=== PATIENT | female | born 1960 | race Caucasian/White ===

== ENCOUNTER 2017-03-23 22:00 | Inpatient (IN) | payer OTHER ==
--- NOTE | ~2017-03-23 | PA ---
Unit #: [id number] #: [id number] Patient: VIJAYA RIOS [id number] [facility] [address] [place] [address] [id number] MR#: [id number] NAME: VIJAYA RIOS. ROOM: P211 Age: 57 Sex: F Admission Date: 03/24/2017 : 1960 Date of Assessment: 03/24/2017 Attending Physician: Keith Mckenzie M.D. Admitting Physician: Keith Mckenzie M.D. Primary Care Physician: Generic Doctor Not In System PSYCHIATRIC ASSESSMENT DATE OF SERVICE 03/24/2017. INFORMANTS The patient considered partially reliable; OLOP, reliable. The patient's family, reliable. CHIEF COMPLAINT Psychosis. HISTORY OF PRESENT ILLNESS The patient is a 57-year-old woman with a history of bipolar disorder, who was initially taken to [facility] on MIW. She become increasingly psychotic, decompensated, and paranoid since the of her and caregiver several months ago. Family reported she had been delusional seeing things and walking around the house with a large assistant professor of theater knife, threatening unseen people. After MIW was upheld at [facility], she was transferred to [facility]. PAST PSYCHIATRIC HISTORY The patient has been at [facility] in the past and currently has an outpatient provider. She has also been at [facility] in the past. She was mostly taking risperidone, gabapentin, and alprazolam. FAMILY PSYCHIATRIC HISTORY None reported. SOCIAL HISTORY The patient denied a history of childhood abuse or neglect. She is currently on long-term disability, having lost her recently and is unemployed. She is currently living alone with monitoring by her family. PAST MEDICAL HISTORY No chronic medical problems. MEDICATIONS Please see MAR. ALLERGIES No known medication allergies. SUBSTANCE USE HISTORY Unit #: [id number] #: [id number] Patient: VIJAYA RIOS None reported. MENTAL STATUS EXAMINATION The patient was admitted and placed on suicide precautions. Physical examination and baseline laboratory studies will be ordered and reviewed. Risperidone was restarted for psychosis with trazodone as needed for insomnia. She will enroll in psychotherapy groups and activities. TREATMENT GOALS Resolution of psychosis, improvement in insight, and improvement in coping skills. DISCHARGE PLANNING Follow up with [facility]. ESTIMATED LENGTH OF STAY 5 days. Dictated by... Keith Mckenzie M.D. MACIE/dian TD: 05/24/2017 07:25 JOB #: [id number] PSYCHIATRIC ASSESSMENT Page 1 of 1 X Keith Mckenzie MD X PSYCHIATRIC ASSESSMENT
--- NOTE | ~2017-03-23 | HP ---
Unit #: [id number] #: [id number] Patient: VIJAYA RIOS [id number] [place] [address] [id number] MR#: [id number] NAME: VIJAYA RIOS ROOM: P211 Age: 56 Sex: F Admission Date: 03/24/2017 : 1960 Attending Physician: Keith Mckenzie M.D. Admitting Physician: Keith Mckenzie M.D. Primary Care Physician: Generic Doctor Not In System HISTORY AND PHYSICAL HISTORY OF PRESENT ILLNESS The patient is a 56-year-old female, who states that she does not know why she is here, she doesn't know how she got here. She says she is clean and she doesn't know why she is here and she wants to go home. Per chart, the patient was brought here on a MIW taken out by her son because she is having visual hallucinations, and also some history of bipolar. PAST MEDICAL HISTORY The patient states none. PAST SURGICAL HISTORY None. ALLERGIES None. SOCIAL HISTORY Positive for smoking. The patient admits to take Soma and Xanax. FAMILY HISTORY Noncontributory. REVIEW OF SYSTEMS CONSTITUTIONAL: No fever or chills. HEENT: Denies any sore throat, ear pain or runny nose. CARDIOVASCULAR: Denies chest pain, irregular heart rhythm or palpitations. CHEST: Denies shortness of breath or cough. No hemoptysis. GASTROINTESTINAL: Denies nausea, vomiting, diarrhea or chronic constipation. ENDOCRINE: Denies history of increased thirst or urination. No recent significant weight loss or gain. GENITOURINARY: Denies dysuria, frequency, or hematuria. SKIN: Denies any rashes. HEMATOLOGIC: Denies history of increased bleeding or bruising. MUSCULOSKELETAL: Denies any hot, swollen joints. No generalized muscle pain. NEUROLOGIC: Denies problems with vision or speech. No frequent, severe headaches. No numbness, tingling or weakness in any extremities. Denies loss of bladder or bowel control. CURRENT MEDICATIONS 1. Motrin 800 mg p.o. three times daily 2. Neurontin 300 mg p.o. three times daily Unit #: [id number] #: [id number] Patient: VIJAYA RIOS 3. Risperdal 2 mg p.o. q.h.s. 4. Zyrtec 10 mg daily 5. Flonase two puffs each nostril daily 6. Trazodone 50 mg p.o. q.h.s. 7. Metoprolol 25 mg p.o. twice daily 8. Nitroglycerin 0.4 mg p.r.n. 9. Multivitamin p.o. daily 10. Vitamin B complex p.o. daily 11. Potassium 20 mEq p.o. daily PHYSICAL EXAMINATION GENERAL: Alert, oriented, and in no acute distress although the patient cannot state why she is here or how she arrived here. VITAL SIGNS: Blood pressure 136/100, heart rate 90, respirations 16. HEIGHT: 5 feet 4 inches. WEIGHT: 93.5 pounds. SKIN: Warm and dry without rash or lesion. Bruise to the right knee, tattoo to the right lower extremity. Scab to the right elbow. HEENT: Normocephalic. TMs not viewed. Oral and nasal passages clear. Conjunctivae clear. PERRLA. EOMs intact. NECK: Supple without lymphadenopathy or thyromegaly. HEART: Regular rate and rhythm without murmur. LUNGS: Clear. ABDOMEN: Soft, nontender. : Not done. EXTREMITIES: No evidence of cyanosis, clubbing or edema. Moves all without focal deficit. NEUROLOGICAL: Grossly within normal limits. Cranial Nerves: II: Visual willett are intact. III, IV AND : Extraocular movements are intact. Pupils are equal, round and reactive to light. V: Facial sensation is grossly normal. VII: Facial movements and expression are normal. VIII: Auditory acuity grossly intact. IX, X: Uvula is midline. Phonation is normal. XI: Patient shrugs shoulders and turns head normally. XII: Tongue protrudes in the midline. Sensory and Motor Function: Sensory and motor sensation is grossly normal. Motor: moves all extremities well. Coordination: Gait is normal. Deep Tendon Reflexes: Intact. IMPRESSION Psychiatric admission. RECOMMENDATIONS Psychiatric, per psychiatrist. MEDICAL I see no contraindications to participating in facility's activities. MEDICAL PROGNOSIS Good. Dictated by... Nader EarlPKamleshREmmett DA SILVA/benitez Unit #: [id number] #: [id number] Patient: VIJAYA RIOS TD: 03/25/2017 09:08 JOB #: [id number] HISTORY AND PHYSICAL Page 1 of 1 X Fabienne Cleary APR X HISTORY AND PHYSICAL
--- NOTE | ~2017-03-23 | DS ---
Unit #: [id number] #: [id number] Patient: VIJAYA RIOS [id number] [place] [address] [id number] MR#: [id number] NAME: VIJAYA RIOS. ROOM: P211 Age: 56 Sex: F Admission Date: 03/24/2017 : 1960 Discharge Date: 03/26/2017 Attending Physician: Keith Mckenzie M.D. Primary Care Physician: Generic Doctor Not In System DISCHARGE SUMMARY REASON FOR ADMISSION Vijaya is a 56-year-old woman, whose family reports a history of schizophrenia and opioid dependence. The patient was in extremely confused state when she arrived, possibly drug induced and has significant amount of paranoia. She was unable to be safe in the outpatient setting and was admitted for stabilization. DIAGNOSTIC STUDIES LABORATORY RESULTS: Urine drug screen was positive for benzodiazepines and amphetamines. Urinalysis was within normal limits. HOSPITAL COURSE The patient was admitted and placed on the opioid detox protocol. Her home medications were restarted and she was assigned to dual diagnosis groups and activities. She participated minimally in these groups, having active detox symptoms for about 48 hours, but no further evidence of confusion or disorientation. She had no suicidal ideation, intent, or plan throughout the hospitalization and on the date of discharge, showed improved mood and was able to contract for safety. DISCHARGE DIAGNOSES AXIS I: Schizophrenia, paranoid type by history; opioid dependence. AXIS II: No diagnosis. AXIS III: None acute. AXIS IV: AXIS V: DISCHARGE INSTRUCTIONS Follow up with [facility] and primary care physician. DISCHARGE MEDICATIONS Risperdal M-Tab 2 mg at bedtime for psychosis and trazodone 50 mg at bedtime for insomnia. Primary care medicines included Neurontin 300 mg t.i.d. for pain, Claritin 10 mg daily for allergies, Flonase 2 sprays once daily for allergies, Lopressor 25 mg for hypertension, and Klor-Con 20 mEq each morning for potassium replacement. CONDITION AT DISCHARGE Improved. PROGNOSIS Fair to good. Unit #: [id number] #: [id number] Patient: VIJAYA RIOS DIET AND ACTIVITY Per primary care doctor. Dictated by... Keith Mckenzie M.D. [facility]/modl TD: 03/27/2017 03:59 JOB #: [id number] DISCHARGE SUMMARY Page 1 of 1 X Keith Mckenzie MD DISCHARGE SUMMARY
--- NOTE | ~2017-03-23 | A ---
[facility] DATE: 03/26/17 Patient: VIJAYA RIOS Physician: FITO Address: [address] [place] [address] Room/Bed: [address], Zip: [place] [address] Admit Date: 03/24/17 Date of : [birth year] Height: 5 4 Weight: 94 43.32940 NUTRITIONAL ASSESSMENT: REASON: Assessed due to low BMI + 1 point malnutrition risk score re: unintentional weight loss Admitting Dx: 56 y/o female admitted for psych evaluation, sent here by her son with visual hallucinations PMH: Bipolar disorder (not medicated), smoker Anthropometrics: Ht: 64", Wt: 95 lbs, BMI: 16 (underweight) Labs: None available Meds: MVI, Balance B-50, Mag-al, Milk of Mg, Phenergan/Zofran, Thiamine, Folic acid, Loperamide, psych meds noted Estimated Nutrition Needs: Increased due to underweight status, weight loss Diet: Regular, no caffeine Assessment: Chart reviewed, events noted. See reason for assessment, admitting dx and PMH as stated above. Patient tested positive for benzos and amphetamines, she is unemployed receiving SSI, in February. She is experiencing visual hallucinations. She is clincally underweight, however she reported good appetite upon admission which has continued. She does report unknown amount of weight loss in "months." She is not appropriate for RD interview however nursing reports she has had good appetite, has been up for all meals with good oral intake. No past weights available for comparison. See recs below. Dx: Underweight r/t unknown etiology AEB BMI 16, 1 point malnutrition risk score. Intervention: Large portions/Ensure BID as desired Monitoring, Evaluation and Goals: 1. PO intake > 75% of meals. 2. Gradual weight gain towards a healthy BMI range. Monitor: Per MD consult Recommendations: [facility] DATE: 03/26/17 Patient: VIJAYA RIOS Physician: FITO Address: [address] [place] [address] Room/Bed: [address], Zip: [place] [address] Admit Date: 03/24/17 Date of : [birth year] Height: 5 4 Weight: 94 43.91527 1. Continue regular diet, no caffeine at this time per MD. Encourage adequate fluid intake and oral intake at meals. If large portion entrees are desired please add to the patient's diet order and RD will approve for lunch and dinner. 2. Suggest adding Ensure Plus shakes BID given underweight status and unknown amount of weight loss reported by patient. Requires MD order, available in chocolate or vanilla. 3. Continue vitamins and Risperdal, which may promote weight gain. Weight gain is desired due to underweight status. 4. Please weigh q 3 days for monitoring purposes and consult RD if weight beging trending down. 5. Please consult RD or call [phone] with any further nutritional needs. Mild-moderate nutrition risk Respectfully, Shalonda Tsai, KELLEY, LD [facility] cc: client file
[2017-03-25 12:47] LABS: URINE APPEARANCE CLEAR; URINE BILIRUBIN NEG (NEG); URINE BLOOD NEG (NEG); URINE COLOR DK YELLOW; URINE GLUCOSE NEG (NEG); URINE KETONE NEG (NEG); URINE LEUKOCYTE ESTERASE 1+ (NEG); URINE NITRATE NEG (NEG); URINE PH 6.5 (5-8); URINE PROTEIN NEG (NEG); URINE SPECIFIC GRAVITY 1.019 (1.003-1.035)
[2017-03-25 12:50] LABS: U HYALINE CASTS AUWI 0-2 /[LPF]; URINE BACTERIA AUWI 1+ (NEGATIVE); URINE SQUAMOUS EPITHELIAL CELL FEW /[HPF]
[2017-03-25 14:06] LABS: AMPHETAMINE POS (NEG); BARBITURATES NEG (NEG); BENZODIAZEPINES POS (NEG); COCAINE NEG (NEG); MARIJUANA NEG (NEG); OPIATES NEG (NEG); TRICYCLIC ANTIDEPRESSANTS NEG (NEG); U METHADONE NEG (NEG)
== END 2017-03-26 13:20 | disposition home or self-care (01) | DRG 885 ==
LOC: P2S 03-24 03:14
PROVIDERS: Psychiatry & Neurology Psychiatry
PROC: HZ2ZZZZ Detoxification Services for Substance Abuse Treatment (ICD-10-PCS; principal; 2017-03-24)
DX: F20.0 Paranoid schizophrenia (principal); F11.20 Opioid dependence, uncomplicated
CPT/HCPCS: 80307; 81003